=== PATIENT | female | born 1985 ===

== ENCOUNTER → 2018-04-30 | Outpatient (CLI) | payer OTHER ==
[2018-05-02 22:11] LABS: CHLAMYDIA TRACHOMATIS, NAA Negative (Negative); NEISSERIA GONORRHOEAE, NAA Negative (Negative)
== END | disposition home or self-care (01) ==
LOC: LAB 14:51 → LAB SHORT 14:51
PROVIDERS: Obstetrics & Gynecology
DX: Z11.3 Encounter for screening for infections with a predominantly sexual mode of transmission (principal)
CPT/HCPCS: 87491; 87591